=== PATIENT | female | born 1945 | race Caucasian/White ===

== ENCOUNTER 2016-08-31 18:45 | Emergency (ER) | payer MEDICARE, OTHER ==
[~2016-08-31] VITALS: Ht 165.1 cm; Wt 60.9 kg
[2016-08-31 18:50] VITALS: BP 100/64
[2016-08-31] MEDS ORDERED: OXYcodone/APAP 5/325MG TABLET PO ONE (19:30)
[2016-08-31] MEDS ORDERED: OXYcodone/APAP 5/325MG TABLET ONE (19:31)
== END 2016-08-31 20:01 | disposition home or self-care (01) ==
LOC: ED 19:49
DX: S42.222A 2-part displaced fracture of surgical neck of left humerus, initial encounter for closed fracture (principal); W01.0XXA Fall on same level from slipping, tripping and stumbling without subsequent striking against object, initial encounter; Y93.89 Activity, other specified; Y92.89 Other specified places as the place of occurrence of the external cause; Y99.8 Other external cause status
CPT/HCPCS: 99284

== ENCOUNTER → 2017-08-01 | Outpatient (CLI) | payer MEDICARE, OTHER ==
[~2017-08-01] MED LIST: GADOBUTROL 7.5 MMOL/7.5 ML VIAL ONE
== END | disposition home or self-care (01) ==
LOC: CFH 13:04
PROVIDERS: ATTEND Family Medicine
DX: R60.0 Localized edema (principal)
CPT/HCPCS: 73720; A9585

== ENCOUNTER 2018-03-01 10:03 | Outpatient (CLI) | payer MEDICARE, OTHER | END 2018-03-01 23:59 | disposition home or self-care (01) | LOC: CFH 10:03 | PROVIDERS: ATTEND Family Medicine | DX: R92.8 Other abnormal and inconclusive findings on diagnostic imaging of breast (principal); Z85.3 Personal history of malignant neoplasm of breast | CPT/HCPCS: 77065 ==

== ENCOUNTER → 2018-04-13 | Outpatient (CLI) | payer MEDICARE, OTHER ==
[~2018-04-13] MED LIST changes: -GADOBUTROL 7.5 MMOL/7.5 ML VIAL ONE; +LIDOCAINE-MPF 1%, 5ML ONE
== END | disposition home or self-care (01) ==
LOC: RAD 07:31
PROVIDERS: ATTEND Physician Assistant Surgical
DX: M25.551 Pain in right hip (principal); M79.89 Other specified soft tissue disorders
CPT/HCPCS: 20206; 77012; 88305; 88341; 88342

== ENCOUNTER 2019-02-11 08:41 | Outpatient (CLI) | payer MEDICARE, OTHER | END 2019-02-11 23:59 | disposition home or self-care (01) | LOC: CFH 08:41 | PROVIDERS: ATTEND Internal Medicine Hematology & Oncology | DX: Z12.31 Encounter for screening mammogram for malignant neoplasm of breast (principal); C91.10 Chronic lymphocytic leukemia of B-cell type not having achieved remission; C50.212 Malignant neoplasm of upper-inner quadrant of left female breast | CPT/HCPCS: 77067 ==

== ENCOUNTER → 2019-06-11 | Outpatient (CLI) | payer MEDICARE, OTHER ==
[2019-06-11 10:19] LABS: MEAN CORPUSCULAR HEMOGLOBIN 29.2 pg (27.0-34.8); MEAN CORPUSCULAR VOLUME 91.2 fL (80-100); MEAN PLATELET VOLUME 7.9 fL (7.4-10.4); PLATELET COUNT 121 x10^3/uL (130-400); RED BLOOD COUNT 4.18 x10^6/uL (3.82-5.3); RED CELL DISTRIBUTION WIDTH 17.7 % (9.6-15.2)
[2019-06-11 10:24] LABS: ALANINE AMINOTRANSFERASE 22 U/L (12-78); ALBUMIN 3.9 g/dL (3.4-5.0); ANION GAP 5 mmol/L (5-15); CALCIUM 9.4 mg/dL (8.5-10.1); CHLORIDE 109 mmol/L (98-107); CREATININE 1.32 mg/dL (0.55-1.02)
[2019-06-11 10:26] LABS: ALKALINE PHOSPHATASE 79 U/L (45-117); BILIRUBIN,TOTAL 0.7 mg/dL (0.2-1.0); TOTAL PROTEIN 7.3 g/dL (6.4-8.2)
[2019-06-11 10:32] LABS: MD YES
[2019-06-11 10:42] LABS: BAND#(MANUAL) 0.41 x10^3/uL; BANDS%(MANUAL) 1 % (0-7); LYMPH#(MANUAL) 38.67 x10^3/uL (1-3.4); LYMPHS% (MANUAL) 95 % (22-44); SEG#(MANUAL) 1.63 x10^3/uL (1.8-6.8); SEGS% (MANUAL) 4 % (42-75)
[2019-06-11 10:48] LABS: ANISOCYTOSIS 1+
[2019-06-11 10:56] LABS: SMUDGE CELLS 1+
[2019-06-11 11:01] LABS: <PLATELET ESTIMATE> DECREASED
[2019-06-11 11:03] LABS: <PLT MORPHOLOGY> NORMAL PLT MORPH
== END | disposition home or self-care (01) ==
LOC: LAB 09:45
PROVIDERS: ATTEND Family Medicine
DX: D89.89 Other specified disorders involving the immune mechanism, not elsewhere classified (principal); R53.82 Chronic fatigue, unspecified
CPT/HCPCS: 36415; 80053; 82140; 85025

== ENCOUNTER → 2020-04-15 | Outpatient (CLI) | payer MEDICARE, OTHER ==
[~2020-04-15] MED LIST changes: +ALPR0.5T7 PO; +ARIP5TAB13 PO; +ATOR10TA9 PO; +CHOL200040 MT; +FLUT9.9S NAS; +GLIM1TAB7 PO; +LEVO25TA4 PO; -LIDOCAINE-MPF 1%, 5ML ONE; +METH-640 PO; +OMNIPAQUE 350 MG/ML, 100ML BOTTLE ONE; +ONAB100V SC; +ONDA4TAB7 PO; +OXYC5CAP2 PO; +PROC25SU25 PR; +RISE35TA PO; +TAMS-11 PO; +TOPI25TA8 PO; +TURM1POW MT; +[UNRECOGNIZED DRUG - CODE] MM
== END | disposition home or self-care (01) ==
LOC: CFH 12:56
PROVIDERS: ATTEND Specialist
DX: Z51.11 Encounter for antineoplastic chemotherapy (principal); C54.1 Malignant neoplasm of endometrium; C50.212 Malignant neoplasm of upper-inner quadrant of left female breast; R10.2 Pelvic and perineal pain; C91.10 Chronic lymphocytic leukemia of B-cell type not having achieved remission; G89.18 Other acute postprocedural pain; N20.0 Calculus of kidney
CPT/HCPCS: 71260; 74177; Q9967

== ENCOUNTER 2020-04-16 15:34 | Emergency (ER) | payer MEDICARE, OTHER ==
[~2020-04-16] VITALS: Ht 165.1 cm; Wt 57.3 kg
[2020-04-16] VITALS (9 sets, daily range): BP systolic 116–131; BP diastolic 45–65
--- NOTE | 2020-04-16 16:08 | NUR ---
PT IS A 75F COMPLAINING OF SOB AND WEAKNESS. HER DR CALLED TODAY TO REFER HER TO THE ER FOR A HEMOGLOBIN OF 7. SHE IS CURRENTLY UNDERGOING CHEMO FOR UTERINE CA. LAST TREATMENT WAS 03/30/20. SPOUSE AT THE BEDSIDE. BP AND SP02 MONITORS IN PLACE. CALL LIGHT IN WITHIN REACH.
[2020-04-16] MEDS ORDERED: ONAB100V SC (16:12)
[2020-04-16] MEDS ORDERED: ARIP5TAB13 PO (16:12)
[2020-04-16] MEDS ORDERED: LEVO25TA4 PO (16:13)
[2020-04-16] MEDS ORDERED: GLIM1TAB7 PO (16:13)
[2020-04-16] MEDS ORDERED: ATOR10TA9 PO (16:14)
[2020-04-16] MEDS ORDERED: RISE35TA PO (16:15)
[2020-04-16] MEDS ORDERED: TAMS-11 PO (16:15)
[2020-04-16] MEDS ORDERED: METH-640 PO (16:15)
[2020-04-16] MEDS ORDERED: TOPI25TA8 PO (16:16)
[2020-04-16] MEDS ORDERED: FLUT9.9S NAS (16:16)
[2020-04-16] MEDS ORDERED: [UNRECOGNIZED DRUG - CODE] MM (16:17)
[2020-04-16] MEDS ORDERED: TURM1POW MT (16:18)
[2020-04-16] MEDS ORDERED: ONDA4TAB7 PO (16:19)
[2020-04-16] MEDS ORDERED: PROC25SU25 PR (16:19)
[2020-04-16] MEDS ORDERED: CHOL200040 MT (16:19)
[2020-04-16] MEDS ORDERED: OXYC5CAP2 PO (16:20)
[2020-04-16] MEDS ORDERED: ALPR0.5T7 PO (16:20)
[2020-04-16] MEDS ORDERED: SODIUM CHLORIDE FLUSH 10ML SYR IVF ONE (16:30)
[2020-04-16 16:31] LABS: MEAN CORPUSCULAR HEMOGLOBIN 34.9 pg (27.0-34.8); MEAN CORPUSCULAR HGB CONC 32.9 g/dL (32.4-35.8); MEAN PLATELET VOLUME 8.2 fL (7.4-10.4); PLATELET COUNT 95 x10^3/uL (130-400); RED BLOOD COUNT 1.96 x10^6/uL (3.82-5.3); RED CELL DISTRIBUTION WIDTH 22.6 % (9.6-15.2)
[2020-04-16 16:42] LABS: ANION GAP 11 mmol/L (5-15); CALCIUM 9.2 mg/dL (8.5-10.1); CHLORIDE 108 mmol/L (98-107); CREATININE 1.07 mg/dL (0.55-1.02); MD YES
[2020-04-16 16:52] LABS: TROPONIN I < 0.015 ng/mL (0.000-0.045)
--- NOTE | 2020-04-16 17:00 | NUR ---
PT HAS PORT IN THE RIGHT CHEST. ACCESSED PORT FOR BLOOD TRANSFUSION.
[2020-04-16 17:05] LABS: FREE T4 (FREE THYROXINE) 1.35 ng/dL (0.76-1.46)
--- NOTE | 2020-04-16 17:15 | NUR ---
PT UP TO BATHROOM, GAIT SLOW AND STEADY, EXPLAINED NEED FOR RBC, PT VERBALIZED UNDERSTANDING, CONSENT SIGNED. URINE SENT, DENIES ANY FURTHER NEEDS, DRINKING WATER, LEFT AND WILL RETURN SOON. AWAITING CALL FROM BLOOD BANK
[2020-04-16 17:18] LABS: MICROSCOPIC NOT IND
[2020-04-16 17:26] LABS: BAND#(MANUAL) 0.32 x10^3/uL; BANDS%(MANUAL) 2 % (0-7); BASOS#(MANUAL) 0.16 x10^3/uL (0-0.1); BASOS% (MANUAL) 1 % (0-1); LYMPH#(MANUAL) 14.56 x10^3/uL (1-3.4); LYMPHS% (MANUAL) 91 % (22-44); MONOS#(MANUAL) 0.16 x10^3/uL (0.3-2.7); MONOS% (MANUAL) 1 % (2-9); SEGS% (MANUAL) 5 % (42-75)
[2020-04-16 17:41] LABS: ANISOCYTOSIS 1+
[2020-04-16 17:42] LABS: <PLATELET ESTIMATE> DECREASED; <PLT MORPHOLOGY> NORMAL PLT MORPH; OVALOCYTES 1+; SMUDGE CELLS 1+
--- NOTE | 2020-04-16 18:53 | NUR ---
REPORT TO WYATT LIMA.
--- NOTE | 2020-04-16 19:41 | NUR ---
CURRENTLY RUNNING 2ND BAG OF BLOOD. PT STABLE, STATES FEELING FINE AND READY TO GO HOME
--- NOTE | 2020-04-16 21:24 | NUR ---
PORT ACCESS GOT HEPARIN BEFORE REMOVAL, PER POLICY, ACCESS REMOVED ASEPTICLY, PT TOLERATED WELL
== END 2020-04-16 21:30 | disposition home or self-care (01) ==
LOC: ED 18:53
DX: C80.1 Malignant (primary) neoplasm, unspecified (principal); D64.9 Anemia, unspecified; R94.31 Abnormal electrocardiogram [ECG] [EKG]; R06.02 Shortness of breath; R07.89 Other chest pain; R53.1 Weakness; E11.9 Type 2 diabetes mellitus without complications
CPT/HCPCS: 36415; 36430; 71045; 80048; 81003; 83735; 84439; 84443; 84484; 85025; 86850; 86900; 86923; 93005; 99285; P9016

== ENCOUNTER → 2020-06-09 | Outpatient (CLI) | payer MEDICARE, OTHER ==
[~2020-06-09] MED LIST changes: -OMNIPAQUE 350 MG/ML, 100ML BOTTLE ONE; +REGADENOSON 0.4 MG/5 ML SYRINGE ONE
== END | disposition home or self-care (01) ==
LOC: CFH 06:53
PROVIDERS: ATTEND Internal Medicine Cardiovascular Disease
DX: I37.1 Nonrheumatic pulmonary valve insufficiency (principal); R07.89 Other chest pain
CPT/HCPCS: 78452; 93017; 93306; 93356; A9502; J1642; J2785

== ENCOUNTER → 2020-07-16 | Outpatient (CLI) | payer MEDICARE, OTHER ==
[~2020-07-16] MED LIST changes: +OMNIPAQUE 350 MG/ML, 100ML BOTTLE ONE; -REGADENOSON 0.4 MG/5 ML SYRINGE ONE
== END | disposition home or self-care (01) ==
LOC: CFH 09:03
PROVIDERS: ATTEND Specialist
DX: C54.1 Malignant neoplasm of endometrium (principal); C50.212 Malignant neoplasm of upper-inner quadrant of left female breast; C91.10 Chronic lymphocytic leukemia of B-cell type not having achieved remission; R10.2 Pelvic and perineal pain; G89.18 Other acute postprocedural pain; Z51.11 Encounter for antineoplastic chemotherapy; N20.0 Calculus of kidney; R16.1 Splenomegaly, not elsewhere classified
CPT/HCPCS: 71260; 74177; Q9967

== ENCOUNTER → 2020-10-05 | Outpatient (CLI) | payer MEDICARE, OTHER ==
[~2020-10-05] MED LIST changes: -OMNIPAQUE 350 MG/ML, 100ML BOTTLE ONE
[2020-10-05 10:51] LABS: MEAN CORPUSCULAR HEMOGLOBIN 30.5 pg (27.0-34.8); MEAN CORPUSCULAR HGB CONC 32.5 g/dL (32.4-35.8); MEAN PLATELET VOLUME 7.5 fL (7.4-10.4); PLATELET COUNT 127 x10^3/uL (130-400); RED BLOOD COUNT 4.32 x10^6/uL (3.82-5.3); RED CELL DISTRIBUTION WIDTH 15.9 % (9.6-15.2)
[2020-10-05 10:58] LABS: MICROSCOPIC AUTO
[2020-10-05 10:59] LABS: ALBUMIN 4.3 g/dL (3.4-5.0); ANION GAP 7 mmol/L (5-15); CALCIUM 9.6 mg/dL (8.5-10.1); CHLORIDE 104 mmol/L (98-107); CREATININE 1.01 mg/dL (0.55-1.02); IRON LEVEL 66 mcg/dL (50-170)
[2020-10-05 11:04] LABS: % IRON SATURATION 17 % (20-55); TOTAL IRON BINDING CAPACITY 396 mcg/dL (250-450)
[2020-10-05 11:07] LABS: CALCIUM 9.6 mg/dL (8.5-10.1)
[2020-10-05 11:09] LABS: CREATININE,URINE RANDOM 70.8 mg/dL
[2020-10-05 11:29] LABS: <PLATELET ESTIMATE> DECREASED; <PLT MORPHOLOGY> NORMAL PLT MORPH; ANISOCYTOSIS 1+; LYMPH#(MANUAL) 23.37 x10^3/uL (1-3.4); LYMPHS% (MANUAL) 92 % (22-44); MONOS#(MANUAL) 0.25 x10^3/uL (0.3-2.7); MONOS% (MANUAL) 1 % (2-9); OVALOCYTES 1+; POLYCHROMASIA 1+; SEG#(MANUAL) 1.78 x10^3/uL (1.8-6.8); SEGS% (MANUAL) 7 % (42-75)
== END | disposition home or self-care (01) ==
LOC: LAB 10:14
PROVIDERS: ATTEND Internal Medicine Nephrology
DX: C91.Z1 Other lymphoid leukemia, in remission (principal); C55 Malignant neoplasm of uterus, part unspecified; J32.9 Chronic sinusitis, unspecified; E11.22 Type 2 diabetes mellitus with diabetic chronic kidney disease; R53.82 Chronic fatigue, unspecified; N18.30 Chronic kidney disease, stage 3 unspecified; Z87.442 Personal history of urinary calculi
CPT/HCPCS: 36415; 80069; 81001; 82043; 82306; 82310; 82570; 82728; 83540; 83550; 83970; 84156; 85025; 87077; 87086; 87147

== ENCOUNTER 2020-10-19 09:02 | Outpatient (CLI) | payer MEDICARE, OTHER ==
[2020-10-19] MEDS ORDERED: OMNIPAQUE 350 MG/ML, 100ML BOTTLE ONE (10:22)
== END 2020-10-19 23:59 | disposition home or self-care (01) ==
LOC: CFH 09:02
PROVIDERS: ATTEND Specialist
DX: C54.1 Malignant neoplasm of endometrium (principal); C91.10 Chronic lymphocytic leukemia of B-cell type not having achieved remission; C50.212 Malignant neoplasm of upper-inner quadrant of left female breast; G89.18 Other acute postprocedural pain; R10.2 Pelvic and perineal pain; K76.0 Fatty (change of) liver, not elsewhere classified; R16.1 Splenomegaly, not elsewhere classified; N20.0 Calculus of kidney; I70.0 Atherosclerosis of aorta
CPT/HCPCS: 71260; 74177; Q9967